=== PATIENT | female | born 1970 | race Caucasian/White ===

== ENCOUNTER 2021-01-11 01:54 | Emergency (ER) | payer SELFPAY ==
[2021-01-11] MEDS ORDERED: Ondansetron PF 4 MG/2 ML Vial ONE (02:40)
== END 2021-01-11 03:30 | disposition home or self-care (01) ==
LOC: BURERS 01:54
DX: F12.10 Cannabis abuse, uncomplicated (principal); E03.9 Hypothyroidism, unspecified; Z79.899 Other long term (current) drug therapy
CPT/HCPCS: 96374; J2405

== ENCOUNTER 2023-08-03 17:43 | Emergency (ER) | payer OTHER | END 2023-08-03 18:35 | disposition home or self-care (01) | LOC: BURERS 17:43 | DX: S90.31XA Contusion of right foot, initial encounter (principal); W20.8XXA Other cause of strike by thrown, projected or falling object, initial encounter ==

== ENCOUNTER 2023-12-29 10:21 | Emergency (ER) | payer OTHER ==
[2023-12-29 11:24] LABS: Anion Gap 13 mmol/L (10-20); BUN (Urea Nitrogen) 13 mg/dL (9.8-20.1); CK (CPK) 138 U/L (29-168); Calc. Creatinine Clearance 0 mL/min (70-130); Calcium 9.3 mg/dL (7.8-10.44); Carbon Dioxide 25 mmol/L (22-29); Chloride 108 mmol/L (98-107); Estimated GFR 71; Glucose 110 mg/dL (70-105); Potassium 4.4 mmol/L (3.5-5.1); Sodium 142 mmol/L (136-145)
== END 2023-12-29 12:16 | disposition short-term general hospital (02) ==
LOC: BURERS 10:21
DX: M79.605 Pain in left leg (principal); F17.210 Nicotine dependence, cigarettes, uncomplicated
CPT/HCPCS: 36415; 80048; 82550; 85379